=== PATIENT | male | born 1960 | race Caucasian/White ===

== ENCOUNTER 2019-07-24 16:34 | Inpatient (IN) | payer BC, SELFPAY ==
[~2019-07-24 16:34] MED LIST: Iopamidol-370 76% 500 ML 1 ML ONE
[2019-07-24] MEDS ORDERED: Morphine 4 MG/ML VIAL ONE ×4 (17:06→22:29)
[2019-07-24] MEDS ORDERED: Ondansetron PF 4 MG/2 ML Vial ONE (17:18)
[2019-07-24 17:26] LABS: #Eosinphils 0.1 thou/uL (0.0-0.7); #Lymphocytes 0.8 thou/uL (1.20-3.40); #Monocytes 0.7 thou/uL (0.11-0.59); #Neutrophils 9.9 thou/uL (1.40-6.50); %Basophils 0.4 % (0.0-1.0); %Eosinophils 0.5 % (0.0-10.0); %Lymphocytes 7.1 % (21.0-51.0); %Monocytes 6.1 % (0.0-10.0); %Neutrophils 85.9 % (42.0-75.0); Hemoglobin 13.4 g/dL (14.0-18.0); Mean Corpuscular Hemoglobin 27.3 pg (27.0-31.0); Mean Corpuscular Volume 85.2 fL (78.0-98.0); Mean Platelet Volume 6.9 fL (7.4-10.4); Platelet Count 213 thou/uL (130-400); RBC Distribution Width 12.3 % (11.5-14.5); Red Blood Cell (RBC) Count 4.93 mill/uL (4.70-6.10); White Blood Cell (WBC) Count 11.5 thou/uL (4.8-10.8)
--- NOTE | 2019-07-24 17:50 | RAD ---
Chest AP view INDICATION: Chest pain COMPARISON: None FINDINGS: Lungs: The lungs are clear Cardiac silhouette: Mild to moderate cardiomegaly Pulmonary vasculature: Mild pulmonary vascular congestion. Pleural spaces: No pleural effusion or pneumothorax is demonstrated. Upper abdomen: No abnormality seen. Osseous structures: No acute osseous abnormality. Additional findings: There is a dual-lead pacemaker overlying the right chest wall. IMPRESSION: Mild/moderate cardiomegaly with mild pulmonary vascular congestion
[2019-07-24 18:01] LABS: ALT (SGPT) 49 U/L (8-55); AST (SGOT) 50 U/L (5-34); Alkaline Phosphatase 57 U/L (40-110); Anion Gap 11 mmol/L (10-20); BUN (Urea Nitrogen) 17 mg/dL (8.4-25.7); Bilirubin, Total 0.3 mg/dL (0.2-1.2); Calc. Creatinine Clearance 0 mL/min (70-130); Carbon Dioxide 26 mmol/L (22-29); Chloride 107 mmol/L (98-107); Estimated GFR-MDRD 69; Globulin 3.3 g/dL (2.4-3.5); Glucose 160 mg/dL (70-105); Lipase 39 U/L (8-78); Potassium 4.1 mmol/L (3.5-5.1); Protein, Total 7.3 g/dL (6.0-8.3); Sodium 140 mmol/L (136-145)
[2019-07-24 18:43] LABS: Bilirubin Moderate (Negative); Blood, Urine Large (Negative); Leukocyte Negative (Negative); Nitrite Negative (Negative); Protein, Urine (Dipstick) > or equal to 300 mg/dL (Neg-Trace)
[2019-07-24 18:44] LABS: Clarity Turbid (Clear); Glucose, Urine (Dipstick) Negative (Negative)
--- NOTE | 2019-07-24 18:45 | CT ---
CT HEAD WITHOUT IV CONTRAST COMPARISON: None HISTORY: Fell off ladder from a 5 foot height. Patient hit head. TECHNIQUE: Axial CT imaging at 5 mm intervals from vertex through skull base without contrast FINDINGS: A low-density focus is seen in the inferior aspect of the right basal ganglia which may represent a r emote lacunar infarction versus dilated perivascular space. There is no evidence of an acute infarction, hemorrhage, mass effect, or midline shift. The ventricular system is normal in size, shap e, and position. There is thickening of the cervantes of the right sphenoid sinus which could be sequela of chronic sinusi tis. Minimal mucosal thickening is seen in each maxillary antrum. Mastoid air cells are clear. Osseous structures appear intact.No calvarial fracture is seen. IMPRESSION: 1. No acute intracranial abnormality demonstrated. 2. Low-density focus inferior aspect right basal ganglia which may represent remote lacunar infarctio n versus dilated perivascular space.
--- NOTE | 2019-07-24 18:47 | CT ---
CT Cervical Spine WO Con Indication: Fall from ladder with neck injury COMPARISON: None. FINDINGS: Fracture: None. Spinal alignment: No acute malalignment. Craniocervical junction: Within normal limits. Vertebral body heights: Maintained. Cervical spine degenerative change: Mild multilevel cervical spondylosis Lung apices: Mild pleural parenchymal scarring involving both lung apices. IMPRESSION: No acute osseous abnormality.
[2019-07-24 18:49] LABS: RBC/HPF Greater than 50 HPF (0-3)
[2019-07-24 18:53] LABS: Bacteria/HPF None Seen HPF (None Seen); Sperm/HPF 3+ HPF (None Seen); Squamous Epithelial 0-3 HPF (0-3)
--- NOTE | 2019-07-24 19:08 | CT ---
EXAM: CT of the chest with IV contrast CT of the abdomen and pelvis with IV contrast HISTORY: Patient fell 5 feet from a ladder. Injury after fall. Patient on anticoagulation. COMPARISON: None FINDINGS: CT CHEST: Mediastinum: Dual lead right internal jugular vein cardiac pacemaking device is noted in place. The h eart is mildly enlarged. Vessels: There are no findings to suggest an aortic injury. An apparent right subclavian artery is present. Lungs: Dependent atelectasis is present bilaterally. Pleural space: No pneumothorax or pleural effusion is evident. There is a small amount of extrapleura l hemorrhage seen posteriorly on the right. Osseous structures: Nondisplaced fractures are seen involving the posterior right fourth through 12th ribs. Chest wall: Within normal limits. CT ABDOMEN/PELVIS: Liver: Within normal limits. Gallbladder: Within normal limits for CT appearance. Spleen: Within normal limits. Pancreas: Within normal limits. Adrenal glands: Within normal limits. Kidneys: Tiny subcentimeter too small to characterize hypodense lesions seen midportion right kidney. There is minimal but symmetric bilateral perinephric stranding present. Urinary bladder: Decompressed but grossly within normal limits. Vessels: There are no findings to suggest an aortic injury. Pelvis: No focal mass or abnormality. Reproductive organs: Within normal limits for the patient's age. Peritoneum/retroperitoneum: There is minimal stranding seen adjacent to the right psoas muscle with t iny amount of fluid present. This also minimal stranding seen adjacent to the left leticia of the diaphragm with stranding in a paravertebral location in this region as well. Osseous structures: The vertebral body heights of the thoracic and lumbar spine appear to be within n ormal limits. However, there is abnormal widening of the T9-T10 interspace with findings likely related to a mild distraction/hyperextension injury at this level with fracture of a ossified anterio r longitudinal ligament. In addition, there is a subtle nondisplaced fracture extending through the base of the T9 spinous process. There are slightly fractures involving the right-sided transverse processes of L1, L2, and L4 with fracture involving the left L4 transverse process. IMPRESSION: 1. Nondisplaced fractures involving the posterior right fourth through 12th ribs with small amount of adjacent extrapleural hemorrhage. 2. Hyperextension injury with abnormal widening of the T9-T10 interspace and likely fracture through an ossified anterior longitudinal ligament. There is also a subtle nondisplaced fracture involving the base of the T9 spinous process at this level. 3. Right-sided fractures involving the L1, L2, and L4 transverse processes with a fracture involving the left L4 transverse process. 4. Mild stranding seen in a paravertebral location and adjacent to the thoracic aorta at the T9-T10 l evel likely related to the injury at the T9-T10 level. 5. Minimal stranding seen adjacent to the left leticia of the diaphragm just superior to the level of th e celiac artery origin which may represent small amount of venous hemorrhage. A small 1.2 cm nodular density is present in this region which may also be related to the small amount of hemorrhage in this region. No large hematoma is visualized. There is suggestion of slight asymmetric thickening of the right leticia of the diaphragm although this may be within normal limits for the patie nt. 6. Above findings discussed with Dr. Lubin in the emergency department on 07/24/2019 at 1904 hours.
[2019-07-24 20:28] LABS: Lactic Acid 1.6 mmol/L (0.5-2.2)
[2019-07-24] MEDS ORDERED: Ondansetron ODT 4 MG TAB PO PRN (21:41)
[2019-07-24] MEDS ORDERED: Dextrose 50% Abboject 50 ML SYRINGE SLOW IVP PRN (21:41)
[2019-07-24] MEDS ORDERED: HumaLOG 300 UNITS/3 ML VIAL SC PRN (21:41)
[2019-07-24] MEDS ORDERED: Ondansetron PF 4 MG/2 ML Vial IVP PRN (21:41)
[2019-07-24] MEDS ORDERED: Dextrose 5% in Water 1,000 ML IV PRN (21:41)
[2019-07-24] MEDS ORDERED: Rib Fracture Protocol PO SCH (22:00)
[2019-07-24] MEDS: Acetaminophen 500 MG TAB PO SCH (23:37)
[2019-07-24] MEDS: traMADol HCl 50 MG TAB PO SCH (23:37)
[2019-07-24] MEDS: Cyclobenzaprine 10 MG TAB PO PRN (23:38)
--- NOTE | 2019-07-24 23:39 | HP ---
REQUESTING PHYSICIAN: Rajesh Lubin DO CONSULTING PHYSICIAN: Dr. Maria. HISTORY OF PRESENT ILLNESS: Mr. Greene is a 59-year-old male, who presented to the ED after fall from a 7-feet ladder at home. The patient did not lose consciousness, did not hit his head. The patient fell and landed on his back. After a fall, the patient experienced excruciating pain of upper back area. No other injury to be reported. The patient has a history of pacemaker, atrial fibrillation, on Eliquis. REVIEW OF SYSTEMS: Noncontributory except per HPI. CURRENT MEDICATIONS: Metoprolol 30 mg b.i.d. and Eliquis 5 mg b.i.d. ALLERGIES: ANTIHISTAMINE. THE PATIENT EXPERIENCED PROFUSE SWEATING WITH ANTIHISTAMINE. PAST MEDICAL HISTORY: Atrial fibrillation, pacemaker three years ago. PAST SURGICAL HISTORY: None. SOCIAL HISTORY: The patient denies alcohol, denies drug use. He is chewing tobacco. PHYSICAL EXAMINATION: GENERAL: Currently, the patient is lying in bed comfortable, in no acute respiratory distress. Complains of upper back pain. VITAL SIGNS: Temperature 98.8, heart rate 85, respiratory rate 22, O2 saturation 100% on room air, and blood pressure 121/78. HEENT: Atraumatic. No bruising. Nontender to palpation. Pupils 3 mm, equal bilaterally. NECK: Trachea midline. Nontender to palpation. CHEST: No bruising. Upper back gray cloth washer to palpation on the right side. LUNGS: Clear bilaterally. HEART: Regular rate and rhythm. ABDOMEN: No bruising. Nondistended. Nontender to palpation. Bowel sounds active. PELVIS: Stable. EXTREMITIES: Normal range of motion x4. NEUROVASCULAR: Intact x4. NEUROLOGIC: No focal neurology deficits. Imaging : Initial workup shows blood in the urine and urine color is brown. CT cervical spine shows no acute osseous abnormality. CT head, no acute intracranial abnormality. Chest XR show moderate cardiomegaly with pulmonary vascular congestion. CT of chest, abdomen, and pelvis show nondisplaced fracture of posterior right 4 through 12 ribs with small adjacent extrapleural hemorrhage, hyperextension injury with abnormal widening of the T9-T10 interspace. Right side fracture of L1, L2, L4 transverse process fracture, and left L4 transverse process fracture, mild stranding of the paravertebral location. Chemistry show sodium 140, potassium 4.1, creatinine 1.1, glucose 160. Assessment : 1. Status post fall from 7f ladder on Eliquis 2. R posterior of 4th- 12th ribs fracture 3. R transverse fracture of L1, L2, L4 . Left transverse fracture of L4 4. History of pacemaker, afib, DVT 5. gross hematuria on UA PLAN: The patient will be admitted to [place] [id number] for pain control with rib fracture protocol exclude Ibuprofen due to so hemorrhage on abdominal CT scan. Initiate non pharmacological DVT prophylaxis . Initiate gastritis prophylaxis and pulmonary toilet. recheck UA. The patient will be working with Physical Therapy and Occupational Therapy. Anticipate discharge home after pain is controlled. Repeat chest x-ray tomorrow. Job ID: [id number] [facility]
[2019-07-24] MEDS ORDERED: Ibuprofen 800 MG TAB PO SCH (23:59)
[2019-07-25 01:51] VITALS: BMI 34.9
[2019-07-25] MEDS: traMADol HCl 50 MG TAB PO SCH ×3 (05:45→18:21)
[2019-07-25] MEDS: Acetaminophen 500 MG TAB PO SCH ×3 (05:45→18:21)
[2019-07-25 07:47] LABS: #Eosinphils 0.1 thou/uL (0.0-0.7); #Lymphocytes 1.1 thou/uL (1.20-3.40); #Monocytes 0.7 thou/uL (0.11-0.59); #Neutrophils 7.6 thou/uL (1.40-6.50); %Basophils 0.2 % (0.0-1.0); %Eosinophils 0.5 % (0.0-10.0); %Lymphocytes 11.6 % (21.0-51.0); %Monocytes 7.7 % (0.0-10.0); %Neutrophils 79.9 % (42.0-75.0); Hemoglobin 13.5 g/dL (14.0-18.0); Mean Corpuscular Hemoglobin 27.6 pg (27.0-31.0); Mean Corpuscular Volume 86.4 fL (78.0-98.0); Mean Platelet Volume 7.2 fL (7.4-10.4); Platelet Count 176 thou/uL (130-400); RBC Distribution Width 12.3 % (11.5-14.5); Red Blood Cell (RBC) Count 4.87 mill/uL (4.70-6.10); White Blood Cell (WBC) Count 9.5 thou/uL (4.8-10.8)
[2019-07-25 08:08] LABS: Anion Gap 10 mmol/L (10-20); BUN (Urea Nitrogen) 17 mg/dL (8.4-25.7); CK (CPK) 1258 U/L (30-200); Calc. Creatinine Clearance 159 mL/min (70-130); Calcium 8.8 mg/dL (7.8-10.44); Carbon Dioxide 26 mmol/L (22-29); Chloride 106 mmol/L (98-107); Estimated GFR-MDRD Greater than 90; Glucose 113 mg/dL (70-105); Potassium 4.3 mmol/L (3.5-5.1); Sodium 138 mmol/L (136-145)
[2019-07-25] MEDS: Gabapentin 300 MG CAP PO SCH ×3 (08:11→21:54)
[2019-07-25] MEDS: Polyethylene Glycol 3350 17 GM Packet PO SCH (08:11)
[2019-07-25] MEDS: Senokot S 8.6-50 MG TAB PO SCH ×2 (08:11→21:57)
[2019-07-25] MEDS: Cyclobenzaprine 10 MG TAB PO PRN ×2 (08:14→15:58)
[2019-07-25] MEDS: Famotidine 20 MG TAB PO SCH ×2 (09:54→22:00)
[2019-07-25] MEDS ORDERED: Lactated Ringer's 1,000 ML IV SCH (13:00)
[2019-07-25] MEDS: Lactated Ringer's 1,000 ML IV SCH ×2 (13:28→21:55)
--- NOTE | 2019-07-25 21:10 | PRG ---
DATE OF SERVICE: 07/25/2019 SUBJECTIVE: Seen by Dr. Hugo Santana on morning rounds. Mr. Greene is a 59-year-old male, admitted overnight for fall from a ladder. On review, a CT demonstrated mild extravasation concern for venous bleeding. However, his hemoglobin remained stable. Hemodynamically, the patient remained stable. He states his pain is present but improved. The patient does have multiple rib fractures. He is only getting around We have encouraged splinting to improve this. Further review of the CT does show a hyperextension injury concerning for an unstable spine; therefore, Neurosurgery has been consulted, and has seen the patient, he has been fitted with a TLSO brace, and we are evaluating his pacemaker, which found out to be [employer], see if this is MRI compatible. If it is so, we will proceed with MRI. Further noted that his urine also is with some blood concerning for a renal injury. Therefore, the patient has been given 1 L normal lactated Ringer bolus followed by maintenance fluids to promote nutrition. No other changes overnight. Eliquis has been held. The patient has no nausea or vomiting. SUBJECTIVE: VITAL SIGNS: Temperature is 98.3, blood pressure 126/77, heart rate is 68, breathing 18 times per minute, saturating 98% on 2 L of oxygen via nasal cannula. GENERAL: This is a 59-year-old male, sitting up in bed in slight distress secondary to pain. HEENT: Normocephalic and atraumatic. Trachea is midline. No JVD is appreciated. RESPIRATORY: Equal rise and fall. Bilateral breath sounds. Clear to auscultation in upper and lower lobes bilaterally. Does have slight diminished bibasilar, likely secondary to tidal volume secondary to pain. CARDIOVASCULAR: Regular rate and rhythm. He has strong pulses. ABDOMEN: Protuberant, yet soft. States this is chronic. No peritoneal signs. Pelvis is stable. The patient moves all of his extremities well. NEUROLOGIC: Alert and oriented to person, place, time, and event. No gross deficits appreciated. SKIN: [place], warm, and dry. PSYCH: Normal mood and affect. DIAGNOSTIC CRITERIA: White blood cell count is 9.5, platelets are 176. Hemoglobin and hematocrit 13.5 and 42.1 respectively. This is similar to the previous study. Sodium is 138, potassium 4.3, chloride is 106, CO2 is 26, creatinine is 0.84, glucose 113. ASSESSMENT AND PLAN: 1. Fall from ladder with acute traumatic pain. 2. Transverse process fractures. 3. Multiple right-sided rib fractures, 4 through 12. 4. Hyperextension injury with T9-T10 widening. 5. Hematuria. Concern for renal injury. 6. Possible extravasation of venous bleeding with stable hemoglobin. 7. History of atrial fibrillation, deep venous thrombosis, status post pacemaker placement 3 years ago. PLAN: 1. Continue current pain management. 2. Neurosurgery has been consulted, appreciate recommendations. 3. Consult [employer] to confirm this pacemaker is MRI compatible. 4. TLSO brace and spinal precautions. 5. Fluids as noted above. 6. Monitor hemoglobin and electrolytes following day. 7. Check a CK level. 8. Continue all other supportive care. 9. Updated the patient and the patient's at bedside and answered all questions. Job ID: [id number]
[2019-07-26] MEDS: traMADol HCl 50 MG TAB PO SCH ×5 (01:00→23:31)
[2019-07-26] MEDS: Acetaminophen 500 MG TAB PO SCH ×5 (01:00→23:31)
--- NOTE | 2019-07-26 03:56 | CON ---
DATE OF CONSULTATION: 07/25/2019 CHIEF COMPLAINT: Mid thoracic back pain status post fall. HISTORY OF PRESENT ILLNESS: Mr. Greene is a 59-year-old gentleman who presented after falling approximately 7 feet off from a ladder and landing flat on his back yesterday. He endorses mid thoracic back pain without associated leg pain, paresthesias, or weakness. CT of the chest, abdomen, pelvis was completed which revealed concern for T9-T10 three-column injury. PHYSICAL EXAMINATION: GENERAL: The patient is awake, alert, and appropriate. The patient lying comfortably in bed, in no apparent distress. HEAD: Normocephalic and atraumatic. EXTREMITIES: 5/5 strength throughout the upper and lower extremity myotomes bilaterally. Sensation to light touch is intact and equal throughout extremities. Patient wearing TLSO clamshell brace upon my evaluation. Gait was not assessed. IMPRESSION: 1. T9-T10 three column injury status post fall from ladder. 2. Multiple lumbar transverse process fractures. 3. Multiple rib fractures. 4. Hematuria, concerning for renal injury. 5. History of atrial fibrillation and deep venous thrombosis, status post pacemaker placement 3 years ago, on Eliquis. PLAN: This case has been discussed and imaging reviewed with Dr. Hoff. CT of the chest, abdomen, and pelvis shows a widening of the interspace at T9- T10 suspicious for unstable three column injury. Imaging shows characteristics of diffuse idiopathic skeletal hyperostosis (DISH) or ankylosing spondylitis-type picture. Multiple right-sided rib fractures present. Additionally, there are multiple lumbar transverse process fractures present at the right L1, L2 and L4 as well as the left L4 transverse process. An MRI of the thoracic spine without contrast was ordered this morning, however it was not completed given the MRI machine was down as well as the patient had a pacemaker with unknown MRI compatibility. Later today, a open claims representative from [employer] was able to assess the pacemaker and was found to be MRI compatible. Therefore, we will proceed with completion of thoracic MRI as soon as possible. TLSO clamshell brace on at all times. The patient may participate with PT and is cleared from a neurosurgical standpoint to mobilize out of bed as long as he is wearing his TLSO clamshell brace. Eliquis has been held. Our team will re- evaluate the patient tomorrow. Please call sooner for any neurologic changes or other concerns. This was a 50 minute initial consult visit in which greater than 50% of the time was spent in review of records, review of imaging, evaluation, examination of the patient, and formulation of a plan. The remaining time was spent in counseling and coordination of care. Job ID: [id number] [facility]
[2019-07-26 05:32] LABS: #Eosinphils 0.1 thou/uL (0.0-0.7); #Lymphocytes 1.4 thou/uL (1.20-3.40); #Monocytes 0.7 thou/uL (0.11-0.59); #Neutrophils 7.9 thou/uL (1.40-6.50); %Basophils 0.2 % (0.0-1.0); %Eosinophils 0.7 % (0.0-10.0); %Lymphocytes 14.1 % (21.0-51.0); %Monocytes 6.9 % (0.0-10.0); %Neutrophils 78.1 % (42.0-75.0); Hemoglobin 12.1 g/dL (14.0-18.0); Mean Corpuscular HGB CONC 32.6 g/dL (32.0-36.0); Mean Corpuscular Hemoglobin 28.2 pg (27.0-31.0); Mean Corpuscular Volume 86.7 fL (78.0-98.0); Mean Platelet Volume 7.1 fL (7.4-10.4); Platelet Count 152 thou/uL (130-400); RBC Distribution Width 12.4 % (11.5-14.5); Red Blood Cell (RBC) Count 4.28 mill/uL (4.70-6.10); White Blood Cell (WBC) Count 10.2 thou/uL (4.8-10.8)
[2019-07-26 05:50] LABS: Anion Gap 12 mmol/L (10-20); BUN (Urea Nitrogen) 14 mg/dL (8.4-25.7); Calc. Creatinine Clearance 167 mL/min (70-130); Calcium 8.1 mg/dL (7.8-10.44); Carbon Dioxide 24 mmol/L (22-29); Chloride 103 mmol/L (98-107); Estimated GFR-MDRD Greater than 90; Glucose 113 mg/dL (70-105); Magnesium 1.7 mg/dL (1.6-2.6); Phosphorus 3.1 mg/dL (2.3-4.7); Potassium 4.1 mmol/L (3.5-5.1); Sodium 135 mmol/L (136-145)
[2019-07-26] MEDS: Cyclobenzaprine 10 MG TAB PO PRN ×2 (06:03→18:05)
--- NOTE | 2019-07-26 08:49 | MRI ---
EXAM: MRI thoracic spine without contrast HISTORY: Fall 7 feet with mid back pain COMPARISON: CT of the spine 07/24/2019 TECHNIQUE: Multiplanar multisequence MR images were obtained of the thoracic spine without contrast. FINDINGS: This exam is limited secondary to artifact from the patient's brace which was left in place for the e xamination. The vertebral bodies demonstrate normal height and alignment without subluxation. There is widening o f the T9/10 intervertebral disc space with high T2 signal within this disc space. The anterior longitudinal ligament cannot be seen at this level but the posterior longitudinal ligament appears in tact. The other intervertebral discs throughout the thoracic spine demonstrate low T2 signal consistent with disc desiccation. The visualized cord demonstrates normal signal throughout. The prevertebral soft tissues are unremarkable. No paraspinal soft tissue abnormality is seen. T1/2: No significant posterior bulge or protrusion. No posterior facet arthrosis. No central canal stenosis. No neural foraminal stenosis. T2/3: No significant posterior bulge or protrusion. No posterior facet arthrosis. No central canal stenosis. No neural foraminal stenosis. T3/4: No significant posterior bulge or protrusion. No posterior facet arthrosis. No central canal stenosis. No neural foraminal stenosis. T4/5: No significant posterior bulge or protrusion. No posterior facet arthrosis. No central canal stenosis. No neural foraminal stenosis. T5/6: No significant posterior bulge or protrusion. No posterior facet arthrosis. No central canal stenosis. No neural foraminal stenosis. T6/7: No significant posterior bulge or protrusion. No posterior facet arthrosis. No central canal stenosis. No neural foraminal stenosis. T7/8: No significant posterior bulge or protrusion. No posterior facet arthrosis. No central canal stenosis. No neural foraminal stenosis. T8/9: No significant posterior bulge or protrusion. No posterior facet arthrosis. No central canal stenosis. No neural foraminal stenosis. T9/10: No significant posterior bulge or protrusion. No posterior facet arthrosis. No central canal stenosis. No neural foraminal stenosis. T10/11: No significant posterior bulge or protrusion. No posterior facet arthrosis. No central bernard l stenosis. No neural foraminal stenosis. T11/12: No significant posterior bulge or protrusion. No posterior facet arthrosis. No central bernard l stenosis. No neural foraminal stenosis. T12/L1: No significant posterior bulge or protrusion. No posterior facet arthrosis. No central bernard l stenosis. No neural foraminal stenosis. IMPRESSION: Abnormal appearance of the T9/T10 intervertebral disc corresponds to the abnormality on CT and likely represented a fracture through the intervertebral disc with blood products seen within the intervertebral disc. No malalignment of the thoracic spine is seen.
[2019-07-26] MEDS: Senokot S 8.6-50 MG TAB PO SCH ×2 (09:07→21:26)
[2019-07-26] MEDS: Gabapentin 300 MG CAP PO SCH ×3 (09:07→21:26)
[2019-07-26] MEDS: Polyethylene Glycol 3350 17 GM Packet PO SCH (09:13)
[2019-07-26] MEDS ORDERED: Magnesium 2 GM/50 ML 2 GM in Premix Bag 1 BAG IVPB SCH (09:15)
[2019-07-26] MEDS ORDERED: Sodium Phosphate 15 MMOL in Sodium Chloride 0.9% 250 ML 250 ML IVPB SCH (09:15)
--- NOTE | 2019-07-26 09:44 | PRG ---
DATE OF SERVICE: Mr. Greene is involved in a fall as outlined in my colleague's note. He sustained a T9-T10 disk space injury. This was confirmed on CT, and MRI findings in the spine are similar to what one might see with ankylosing spondylitis with multilevel fusion. He has a bony injury posteriorly and soft tissue injury anteriorly. We will closely monitor him. Currently, he is in a TLSO clamshell brace and able to mobilize with significant improvement in his pain with the brace in place, however, low threshold to proceed with surgical stabilization. Job ID: [id number]
[2019-07-26] MEDS: Diltiazem HCl SR 60 mg Capsule PO SCH ×2 (10:04→21:26)
[2019-07-26] MEDS ORDERED: Morphine 2 MG/ML SYRINGE SLOW IVP SCH (10:15)
[2019-07-26] MEDS: Famotidine 20 MG TAB PO SCH (10:28)
[2019-07-26] MEDS: Ibuprofen 600 MG TAB PO SCH ×2 (15:04→21:27)
[2019-07-26] MEDS: Lactated Ringer's 1,000 ML IV SCH (15:05)
--- NOTE | 2019-07-26 15:26 | PRG ---
DATE OF SERVICE: 07/26/2019 SUBJECTIVE: The patient is a 59-year-old male with past medical history of pacemaker and atrial fibrillation, on Eliquis, who was seen on morning rounds this morning. He was lying down in bed with his clamshell brace in place. He had been doing well overnight. Some of his electrolytes were repleted this morning. He had his thoracic spine MRI this morning that demonstrated findings consistent with the abnormality seen on the prior CT, which include a T9-T10 intervertebral disk fracture with blood products seen within the intervertebral disk. There was no malalignment of the spine noted on CT. Dr. Hoff from Neurosurgery consulted on the patient and recommended continued use of the TLSO clamshell brace with a low threshold to proceed with surgical stabilization at this time. The patient has been able to eat and urinate normally and has not yet have a bowel movement. This pain is somewhat improved following the brace. The Trauma Team decided to proceed with a post-acute screen for possible rehab placement for the patient at this time. OBJECTIVE: VITAL SIGNS: Temperature 99.7 degrees Fahrenheit, pulse 73, respiratory rate 16, oxygen saturation 90% on 3 L nasal cannula, blood pressure 113/69. GENERAL: A 59-year-old male, lying back in bed with TLSO clamshell brace in place. HEENT: Normocephalic, atraumatic. Midline trachea. RESPIRATORY: Equal rise and fall. Bilateral breath sounds clear to auscultation. CARDIOVASCULAR: Regular rate and rhythm. ABDOMEN: Soft, nontender to palpation, mildly distended. NEUROLOGIC: A and O x4. No gross deficits appreciated. SKIN: [place], warm, and dry. PSYCHIATRIC: Normal mood and affect. LABORATORY DATA: White blood cell count 10.2, hemoglobin 12.1, hematocrit 37.1, platelet count 152. Sodium 135, potassium 4.1, chloride 103, carbon dioxide 24, BUN 14, creatinine 0.80, GFR greater than 90, phosphorus 3.1, magnesium 1.7. IMAGING STUDIES: Thoracic MRI. Abnormal appearance of the T9-T10 intervertebral disk corresponding to the abnormality on CT and likely represented a fracture through the intervertebral disk with blood products seen within the intervertebral disk. No malalignment of the thoracic spine is seen. ASSESSMENT: 1. Fall from ladder with acute traumatic pain. 2. Transverse process fractures. 3. Multiple right-sided rib fractures, 4 through 12. 4. Hyperextension injury with T9-T10 intervertebral disk abnormality. 5. Hematuria, concern for renal injury. 6. Possible extravasation of venous bleeding with stable hemoglobin. 7. History of atrial fibrillation and deep venous thrombosis, status post pacemaker placement 3 years ago. PLAN: Continue current pain, bowel, and diet regimen at this time. Continue PT and OT. MRI has been completed, see above. Neurosurgery is consulted at this time. The patient is to remain in [facility] clamshell brace with low threshold for surgical intervention. We will continue to provide supportive care and monitor the patient to work with PT and OT. Post-acute screening per Case Management. The patient was seen and evaluated by Dr. Santana on morning rounds and he was agreeable with the plan of care. Job ID: [id number] [facility]
--- NOTE | 2019-07-26 16:24 | RAD ---
RADIOGRAPH CHEST 1 VIEW: DATE: 07/26/2019 TIME: 4:08 PM HISTORY: 59-year-old male follow-up chest trauma COMPARISON: 07/24/2019 FINDINGS: New finding of airspace opacity silhouetting the right hemidiaphragm. This is nonspecific. This could be atelectasis, contusion, aspiration, and or pleural effusion. Apparent cardiomegaly may be due to a combination of magnification and epicardial fat pad. No pulmonary edema or pneumothorax. Transve nous right subclavian permanent pacemaker leads. IMPRESSION: Interval development of opacification at base of right lower lobe.
--- NOTE | 2019-07-26 22:19 | CON ---
DATE OF CONSULTATION: HISTORY OF PRESENT ILLNESS: The patient is a 59-year-old gentleman, who suffered a spinal injury and needs to undergo surgery. The patient has a history of pacemaker placement. He had previous history of syncope and he underwent a pacemaker about 3 years ago. He had it first placed on the left side, then had to be switched to the right. The patient subsequently also has a history of atrial fibrillation. He has been on Cardizem and Eliquis. He states he has had no recent palpitations. The patient was able prior to his fall to exercise without any difficulty. The patient denies having any history of chest discomfort. He denied having any dyspnea on exertion. PAST MEDICAL HISTORY: Significant for; 1. Atrial fibrillation. 2. Pacemaker placement. PAST SURGICAL HISTORY: None. FAMILY HISTORY: Strong family history of heart disease. His brother had a coronary bypass surgery. ALLERGIES: ANTIHISTAMINES. MEDICATION: On admission was; 1. Cardizem 60 b.i.d. 2. Eliquis 5 b.i.d. REVIEW OF SYSTEMS: Ten-point system otherwise unremarkable. PHYSICAL EXAMINATION: GENERAL: Obese gentleman, in no acute distress. VITAL SIGNS: Blood pressure 161/80 and temperature was 100.4. NECK: No jugular distention. LUNGS: Clear to auscultation. HEART: Regular rate and rhythm. Normal S1 and S2. ABDOMEN: He has a brace over his abdomen. EXTREMITIES: Showed no edema. VASCULAR: Radial pulses 2+. LABORATORY DATA: His white blood cell count was 10.2, hemoglobin 12.1, hematocrit 37.1, and platelets are 152. His sodium 135, potassium 4.1, chloride 103, bicarbonate 24, BUN 14, creatinine 0.8, and glucose 113. DIAGNOSTIC STUDIES: His EKG revealed normal sinus rhythm with a right bundle-branch block. IMPRESSION: 1. Status post spinal injury. 2. History of atrial fibrillation. 3. History of pacemaker placement. This gentleman presents after sustaining a fall. He needs to undergo surgery. The patient was able to perform more than 4 METs without any difficulty prior to his injury. The patient should be at acceptable risk for undergoing noncardiac surgery. We will follow this patient with you through his hospitalization Job ID: [id number]
--- NOTE | 2019-07-27 02:57 | PRG ---
DATE OF SERVICE: 07/26/2019 SUBJECTIVE: The patient remains on the surgical floor. He is awake and alert, in no distress, sitting up in the chair in a well-fitting TLSO brace. The patient is able to use his IS, only pulling 1000 mL. The patient reports that his pain is well controlled. The patient voices no complaints or concerns at this time. OBJECTIVE: VITAL SIGNS: Stable, afebrile. GENERAL: Well-appearing, middle-aged male, awake and alert, in no distress. RESPIRATORY: Equal chest rise and fall. No respiratory distress. CARDIAC: Regular rate and regular rhythm. EXTREMITIES: Neurovascularly intact x4. NEUROLOGIC: No focal deficits. IMPRESSION: 1. Fall from ladder with acute traumatic pain. 2. Transverse process fractures. 3. Multiple right-sided rib fractures, 4 through 12. 4. Hyperextension injury with T9-T10 intervertebral disk abnormality. 5. Hematuria, concern for renal injury. 6. Possible extravasation of venous bleeding with stable hemoglobin. 7. History of atrial fibrillation, deep venous thrombosis, and pacemaker placement. PLAN: Continue pain regimen and supportive care. Continue PT and OT. Continue TLSO clamshell brace at all times. We will continue to hold the patient's Eliquis until cleared by Neurosurgery. Plan was discussed with the patient, who agrees. Job ID: [id number]
[2019-07-27] MEDS: Acetaminophen 500 MG TAB PO SCH (05:48)
[2019-07-27] MEDS: Ibuprofen 600 MG TAB PO SCH ×3 (05:48→21:37)
[2019-07-27] MEDS: traMADol HCl 50 MG TAB PO SCH ×2 (05:49→12:35)
[2019-07-27 06:09] LABS: #Eosinphils 0.3 thou/uL (0.0-0.7); #Lymphocytes 1.6 thou/uL (1.20-3.40); #Monocytes 0.7 thou/uL (0.11-0.59); #Neutrophils 6.5 thou/uL (1.40-6.50); %Basophils 0.3 % (0.0-1.0); %Eosinophils 3.6 % (0.0-10.0); %Monocytes 7.9 % (0.0-10.0); %Neutrophils 71.1 % (42.0-75.0); Hemoglobin 11.4 g/dL (14.0-18.0); Mean Corpuscular HGB CONC 31.9 g/dL (32.0-36.0); Mean Corpuscular Hemoglobin 27.6 pg (27.0-31.0); Mean Corpuscular Volume 86.7 fL (78.0-98.0); Mean Platelet Volume 7.2 fL (7.4-10.4); Platelet Count 149 thou/uL (130-400); RBC Distribution Width 12.3 % (11.5-14.5); Red Blood Cell (RBC) Count 4.12 mill/uL (4.70-6.10); White Blood Cell (WBC) Count 9.2 thou/uL (4.8-10.8)
[2019-07-27 06:31] LABS: Anion Gap 12 mmol/L (10-20); BUN (Urea Nitrogen) 15 mg/dL (8.4-25.7); Calc. Creatinine Clearance 161 mL/min (70-130); Calcium 8.3 mg/dL (7.8-10.44); Carbon Dioxide 29 mmol/L (22-29); Chloride 99 mmol/L (98-107); Estimated GFR-MDRD Greater than 90; Glucose 110 mg/dL (70-105); Magnesium 2.1 mg/dL (1.6-2.6); Phosphorus 3.7 mg/dL (2.3-4.7); Potassium 3.6 mmol/L (3.5-5.1); Sodium 136 mmol/L (136-145)
[2019-07-27] MEDS ORDERED: Potassium Chloride 20 MEQ TAB PO SCH (06:45)
--- NOTE | 2019-07-27 07:44 | RAD ---
EXAM: Single view of the chest HISTORY: Rib fractures with chest pain COMPARISON: 07/26/2019 FINDINGS: Single view of the chest shows an enlarged but stable cardiomediastinal silhouette. There is stable elevation the right hemidiaphragm. Atelectasis is seen in the right lung base. The pacemaker is unchanged in position. There is no evidence of consolidation, mass, or pleural effusion . IMPRESSION: Stable exam
[2019-07-27] MEDS ORDERED: Potassium Phosphate 15 MMOL in Sodium Chloride 0.9% 250 ML 250 ML IVPB SCH (08:00)
[2019-07-27] MEDS: Senokot S 8.6-50 MG TAB PO SCH ×2 (09:23→21:37)
[2019-07-27] MEDS: Polyethylene Glycol 3350 17 GM Packet PO SCH (09:23)
[2019-07-27] MEDS: Diltiazem HCl SR 60 mg Capsule PO SCH ×2 (09:24→21:38)
[2019-07-27] MEDS: Apixaban 5 MG TAB PO SCH ×2 (09:25→21:38)
[2019-07-27] MEDS: Gabapentin 300 MG CAP PO SCH ×3 (09:27→21:38)
--- NOTE | 2019-07-27 11:12 | PRG ---
DATE OF SERVICE: 07/27/2019 This is a 25-minute subsequent visit in which 50% time was spent in counseling and extensive review of the imaging and hospital course to date with also formulation of plan. Mr. Greene's pain is under much better control. He has a very well fitting brace. MRI confirmed edema through the disk space in the thoracic region, but still started excellent alignment with no change wearing the brace, and mobilizing with in regard to his alignment. He is neurologically intact and again his pain is under excellent control. I let him know at this point we can continue with bracing. I will arrange for upright AP and lateral thoracic spine x-rays in 2 weeks and he is to wear the brace at all times for the next 3 months. He may do sponge baths in the lateral decubitus position briefly to clean, but otherwise, I want him in the brace at all times. He understands that should he fail bracing and all the things to look out for as I have discussed extensively with him that the treatment would be with a thoracic screw cuba fixation. Job ID: [id number]
[2019-07-27] MEDS ORDERED: HYDROcodone/Acetaminophen 7.5/325 mg Tablet PO PRN (11:36)
[2019-07-27] MEDS: Cyclobenzaprine 10 MG TAB PO PRN (12:38)
--- NOTE | 2019-07-27 15:37 | PRG ---
DATE OF SERVICE: 07/27/2019 SUBJECTIVE: The patient was evaluated today during morning rounds. He was sitting upright in the chair next to his bed, in no acute distress. The patient discussed that at this time he is considering going home versus going to rehab and asked Trauma team for recommendations. At this point in time, it was strongly recommended to the patient that he consider rehab as this would likely provide him with great support over the coming days with regard to strengthening and conditioning. Dr. Winters did consult on the patient yesterday in case if the patient needed surgery and at this point, Dr. iWnters said that he would be acceptable for surgery if needed at this time. That being said, Dr. Hoff did look through all the images and recommended that the patient have non-operative treatment at this time as long as he remained in his TLSO clamshell brace at all times. He recommended bathing with sponge bath in the lateral decubitus position, but otherwise wearing a his clamshell brace at all times and to follow up with him in clinic in two weeks with x-rays in order to evaluate his spine and ribs. Dr. Hoff made the recommendation that if the bracing does fail, the patient would likely need thoracic screw cuba fixation at that time. The patient performed incentive spirometry while we were in the room and could only produce 1000 mL on the incentive spirometry at his maximum. It was reported that he needed more oxygen overnight in order to keep his oxygen saturation greater than 92% and his oxygen was up to 3 L at one point. Incentive spirometry was strongly recommended and increased throughout the night as a chest x-ray done had demonstrated a new right lower lobe opacity that was suggestive of atelectasis. The patient stated understanding of the importance of incentive spirometry at this time. It was felt that he was not able to perform his incentive spirometry adequately due to pain and for that reason, his pain regimen was increased so that he would receive one 7.5 mg of [place] q.6 hours p.r.n. for breakthrough pain. His Tylenol was decreased to 650mg. The patient stated that he was agreeable with the plan of care. OBJECTIVE: VITAL SIGNS: Temperature 98.3 Fahrenheit, pulse 71, respiratory rate 18, 94% on 3 L nasal cannula, blood pressure 137/71. GENERAL: A 59-year-old male, sitting upright in chair, in no acute distress. HEENT: Normocephalic, atraumatic. Midline trachea. RESPIRATORY: Equal rise and fall, no respiratory distress at this time. CARDIOVASCULAR: Regular rate and rhythm. ABDOMEN: Soft, nontender, mildly distended. NEUROLOGIC: Sensation and motor intact throughout. No gross deficits appreciated. PSYCH: A and O x4. LABORATORY DATA: White count 9.2, hemoglobin 11.4, hematocrit 35.8, platelet count 149. Sodium 136, potassium 3.6, chloride 199, carbon dioxide 29, BUN 15, creatinine 0.83, GFR greater than 90, phosphorus 3.7, magnesium 2.1. DIAGNOSTIC IMAGIN. Chest x-ray 07/26/2019 at 1536 hours: Interval development of opacification at base of right lower lobe. 2. Chest x-ray 07/27/2019 at 0600 hours: Single-view chest shows an enlarged, but stable cardiomediastinal silhouette. There is stable elevation of the right hemidiaphragm. Atelectasis is seen in the right lung base. The pacemaker is unchanged in position. There is no evidence of consolidation, mass, or pleural effusion. ASSESSMENT: 1. Fall from ladder with acute traumatic pain. 2. Transverse process fractures. 3. Multiple right-sided rib fractures 4 through 12. 4. Hyperextension injury with T9 through T10 intervertebral disk abnormality. 5. Hematuria, concern for renal injury, improving. 6. Possible extravasation of venous bleeding with stable hemoglobin. 7. History of atrial fibrillation and deep venous thrombosis, status post pacemaker placement three years ago. PLAN: The patient to continue diet and bowel regimen at this time. Pain regimen has been increased with the addition of [place] at this time to hopefully assist with the patient's pain tolerance so that he can perform better with the incentive spirometry and help prevent further atelectasis from forming. The patient will not likely need surgery at this time and will continue to have his TLSO brace in place for the next three months with followup with Dr. Hoff in clinic in two weeks. The patient is agreeable to going to rehab at this time and a rehab screen has been placed. Potassium has been repleted this morning. The patient to continue to work with PT and OT as able. The patient was evaluated by and the case discussed with Dr. Santana during morning rounds and he is agreeable with the plan of care. Job ID: [id number] [facility]
[2019-07-27] MEDS: HYDROcodone/Acetaminophen 10/325 mg Tablet PO PRN (17:03)
[2019-07-27] MEDS: HYDROcodone/Acetaminophen 10/325 mg Tablet PO SCH ×2 (17:05→21:38)
[2019-07-27] MEDS: Lidocaine 5% Patch TD SCH (17:39)
[2019-07-27] MEDS: Acetaminophen 325 MG TAB PO SCH (17:39)
[2019-07-27] MEDS ORDERED: Acetaminophen 325 MG TAB PO SCH (18:00)
[2019-07-28] MEDS: Acetaminophen 325 MG TAB PO SCH ×4 (00:13→19:51)
--- NOTE | 2019-07-28 00:41 | PRG ---
DATE OF SERVICE: 07/27/2019 SUBJECTIVE: The patient was seen evening rounds, awake, alert, sitting up in bed, in no acute distress. The patient remains in a well-fitting TLSO brace. The patient continues to work on his incentive spirometer, but only able to reach 1150 mL. The patient reports that his pain is well controlled. The patient continues to have some light pink urine output. The patient has been instructed to inform staff if pain, notices more bleeding or darker color urine due to being placed back on Eliquis. The patient voices no complaints or concerns. Pain has been better with scheduled [place]. OBJECTIVE: VITAL SIGNS: Stable, afebrile, requiring 2 L nasal cannula. GENERAL: Middle-aged male, awake, alert, in no distress. HEENT: Head is normocephalic and atraumatic, trachea midline. RESPIRATORY: Equal chest rise and fall, no respiratory distress. CARDIOVASCULAR: Regular rate and rhythm. EXTREMITIES: Neurovascularly intact x4. ASSESSMENT: 1. Fall from ladder with acute traumatic pain. 2. Transverse process fractures. 3. Multiple right-sided rib fractures, 4 through 12. 4. Hematuria, concern for renal injury, improving. 5. Possible extravasation of venous bleeding with stable hemoglobin. 6. History of atrial fibrillation, deep vein thrombosis and pacemaker placement. PLAN: Continue supportive care and pain regimen. Continue to use incentive spirometer every hour while awake. Physical and Occupational Therapy. The patient is pending placement to rehab for continued physical and occupational therapy. Job ID: [id number]
[2019-07-28] MEDS: Ibuprofen 600 MG TAB PO SCH ×3 (06:20→20:45)
[2019-07-28] MEDS: HYDROcodone/Acetaminophen 10/325 mg Tablet PO SCH ×3 (06:20→18:43)
[2019-07-28] MEDS: Lidocaine Patch Removal 1 EACH TOP SCH (07:44)
[2019-07-28] MEDS ORDERED: Furosemide 40 MG/4 ML VIAL SLOW IVP SCH (08:45)
[2019-07-28] MEDS: Diltiazem HCl SR 60 mg Capsule PO SCH ×2 (08:54→20:45)
[2019-07-28] MEDS: Senokot S 8.6-50 MG TAB PO SCH ×2 (08:54→20:45)
[2019-07-28] MEDS: Gabapentin 300 MG CAP PO SCH ×3 (08:54→20:46)
[2019-07-28] MEDS: Apixaban 5 MG TAB PO SCH ×2 (08:54→20:46)
[2019-07-28] MEDS: Polyethylene Glycol 3350 17 GM Packet PO SCH (08:54)
[2019-07-28] MEDS: HYDROcodone/Acetaminophen 10/325 mg Tablet PO PRN ×2 (12:42→20:46)
[2019-07-28] MEDS: Cyclobenzaprine 10 MG TAB PO PRN (12:42)
[2019-07-28] MEDS: Lidocaine 5% Patch TD SCH (18:43)
--- NOTE | 2019-07-28 18:46 | PRG ---
DATE OF SERVICE: 07/28/2019 SUBJECTIVE: The patient was seen this afternoon during rounds, who is sitting up in the bed with no signs of acute distress. TLSO is in place and reporting pain much better controlled. Tolerating a diet. OBJECTIVE: VITAL SIGNS: Temperature 98.4, pulse 85, respirations 18, oxygen saturation 94% on room air, blood pressure 145/83. GENERAL: Well-appearing middle-aged male, lying in bed with no signs of acute distress. PULMONARY: Equal chest rise and fall. No signs of acute respiratory distress. CARDIAC: Regular rate and rhythm. GI: Abdomen is soft, nontender, nondistended. EXTREMITIES: 2+ pulses in all extremities. Gross motor and sensations intact. No significant swelling noted. NEUROLOGIC: GCS is 15. LABORATORY FINDINGS: There are no new laboratory findings to discuss. DIAGNOSTIC FINDINGS: There are no new diagnostic findings to report. ASSESSMENT: 1. Status post fall from ladder, on Eliquis. 2. Right posterior ribs 4 through 12 fractures. 3. Fractures of the L and T-spine. 4. Gross hematuria. Suspected to have grade 1 kidney injury. 5. History of atrial fibrillation, pacemaker, deep venous thrombosis, and cardiomegaly. PLAN: Continue current diet and pain regimen. Continue physical and occupational therapy. Continue Eliquis. Continue aggressive pulmonary hygiene. The patient has pending placement in acute rehab. He is ready for discharge at this time. Job ID: [id number]
[2019-07-29] MEDS: HYDROcodone/Acetaminophen 10/325 mg Tablet PO SCH ×5 (00:42→22:57)
[2019-07-29] MEDS: Acetaminophen 325 MG TAB PO SCH ×5 (00:42→23:02)
--- NOTE | 2019-07-29 03:55 | PRG ---
DATE OF SERVICE: 07/28/2019 SUBJECTIVE: The patient remains on the surgical floor, awake, alert, in no distress, sitting up in the chair. The patient reports his pain is controlled and has been able to pull a little more from his IS today. The patient does complain of some right thigh swelling, pain, and numbness that started last night. He denies any injury to that extremity. The patient continues to have a good appetite and voices no other complaints. OBJECTIVE: VITAL SIGNS: Stable, continues to require occasional oxygen at 2 L nasal cannula. High temp 100.2. GENERAL: Well-appearing middle-aged male, awake, alert, in no distress. PULMONARY: Equal chest rise and fall, no respiratory distress. CARDIAC: Regular rate, regular rhythm, no pedal edema. Well-fitting TLSO brace in place. EXTREMITIES: Moves all extremities. Neurovascularly intact x4. Right upper extremity; no obvious bruising, right thigh slightly larger than left. The patient denies any numbness or tingling to other extremities. Sensation is intact in all extremities. NEUROLOGIC: GCS 15. ASSESSMENT: 1. Status post fall from ladder, on Eliquis. 2. Right posterior rib fractures 4 through 12. 3. Fractures of lumbar and T-spine. 4. Gross hematuria, improving. Suspected grade 1 kidney injury. 5. History of atrial fibrillation, pacemaker, deep venous thrombosis from peripherally inserted central catheter line placement and cardiomegaly. PLAN: Continue current diet and pain regimen. Continue physical and occupational therapy. Continue Eliquis. Continue aggressive pulmonary toilet with the use of incentive spirometer every hour while awake x10. The patient is pending placement to inpatient rehab. The patient is ready for discharge at this time. Plan was discussed with the patient who agrees. We will also obtain a right lower extremity ultrasound due to swelling and pain. Job ID: [id number]
[2019-07-29] MEDS: Lidocaine Patch Removal 1 EACH TOP SCH (05:37)
[2019-07-29 06:22] LABS: #Eosinphils 0.3 thou/uL (0.0-0.7); #Lymphocytes 1.5 thou/uL (1.20-3.40); #Monocytes 0.9 thou/uL (0.11-0.59); #Neutrophils 4.4 thou/uL (1.40-6.50); %Basophils 0.4 % (0.0-1.0); %Eosinophils 4.3 % (0.0-10.0); %Monocytes 12.3 % (0.0-10.0); %Neutrophils 62.1 % (42.0-75.0); Hemoglobin 11.2 g/dL (14.0-18.0); Mean Corpuscular HGB CONC 32.8 g/dL (32.0-36.0); Mean Corpuscular Hemoglobin 28.3 pg (27.0-31.0); Mean Corpuscular Volume 86.3 fL (78.0-98.0); Platelet Count 191 thou/uL (130-400); RBC Distribution Width 12.4 % (11.5-14.5); Red Blood Cell (RBC) Count 3.95 mill/uL (4.70-6.10)
[2019-07-29] MEDS: Ibuprofen 600 MG TAB PO SCH ×3 (07:20→22:57)
--- NOTE | 2019-07-29 08:15 | ULT ---
RIGHT LOWER EXTREMITY VENOUS ULTRASOUND: Date: 07/29/2019 HISTORY: Right lower extremity edema. TECHNIQUE: Multiplanar Paul scale and color Doppler images were obtained in a right lower extremity venous ultra sound. Spectral analysis of the Doppler waveforms were performed. FINDINGS: The right common femoral vein, profunda femoral vein, superficial femoral vein, and popliteal vein ar e normal in appearance without visible thrombus. These vessels demonstrate normal compression, flow, and augmentation. The posterior tibial vein and greater saphenous vein are also patent. IMPRESSION: No evidence of deep venous thrombosis. POS: CHIO
[2019-07-29] MEDS: Gabapentin 300 MG CAP PO SCH ×3 (10:05→20:09)
[2019-07-29] MEDS: Apixaban 5 MG TAB PO SCH ×2 (10:05→20:08)
[2019-07-29] MEDS: Senokot S 8.6-50 MG TAB PO SCH ×2 (10:05→20:08)
[2019-07-29] MEDS: Diltiazem HCl SR 60 mg Capsule PO SCH ×2 (10:05→20:08)
[2019-07-29] MEDS: Polyethylene Glycol 3350 17 GM Packet PO SCH (10:09)
--- NOTE | 2019-07-29 13:03 | EKG ---
Test Reason : Blood Pressure : / mmHG Vent. Rate : 087 BPM Atrial Rate : 087 BPM P-R Int : 136 ms QRS Dur : 148 ms QT Int : 390 ms P-R-T Axes : 041 008 016 degrees QTc Int : 469 ms Normal sinus rhythm Right bundle branch block Abnormal ECG Confirmed by JEANMARIE HURTADO DO ([id number]), assistant editor DAVID RAMIREZ ([id number] on 07/29/2019 1:03:12 PM Referred By: Confirmed By:JEANMARIE HURTADO DO
[2019-07-29] MEDS: Lidocaine 5% Patch TD SCH (16:15)
--- NOTE | 2019-07-29 16:26 | PRG ---
DATE OF SERVICE: 07/29/2019 SUBJECTIVE: The patient was seen this morning during rounds. He was sitting up with no signs of acute distress. He reported some right-sided leg swelling for which he received a DVT ultrasound of the right lower extremity that demonstrated no DVT. Reports pain was well controlled. Continues to work on his IS. Serious [employer] was in place and fitting appropriately. OBJECTIVE: VITAL SIGNS: Temperature 99.3, pulse 77, respirations 14, oxygen saturation 94% on room air, and blood pressure 127/77. GENERAL: Well-appearing middle-aged male, sitting up with no signs of acute distress. PULMONARY: Equal chest rise and fall. Clear breath sounds bilaterally. No signs of acute respiratory distress. CARDIAC: Regular rate and rhythm. GI: Abdomen is soft, nontender, nondistended. EXTREMITIES: 2+ pulses in all extremities. Gross motor and sensation are intact. Very mild swelling to the right thigh compared to the left with no signs of injury. No tenderness. NEUROLOGIC: GCS 15. LABORATORY FINDINGS: White count 7.0, hemoglobin 11.2, hematocrit 34.1, and platelets 191. DIAGNOSTIC FINDINGS: DVT ultrasound of the right lower extremity demonstrates no evidence of DVT. ASSESSMENT: 1. Status post fall from ladder about 7 feet, on Eliquis. 2. Right posterior rib fractures, 4 through 12. 3. Right transverse process fractures of L1, L2, and L4. 4. T9 and T11 hyperflexion injury while wedging. 5. Hematuria with presumed grade 1 kidney injury, stable. 6. History of atrial fibrillation, pacemaker, deep venous thrombosis, and cardiomegaly. PLAN: Continue current diet and pain regimen. Continue physical and occupational therapy. Continue aggressive pulmonary hygiene. The patient would like a repeat sodium level tomorrow, so he can stop his free water restriction and we will follow that up. He is pending placement at acute rehab facility. He is ready for discharge at this time and is pending insurance approval. Job ID: [id number]
--- NOTE | 2019-07-30 02:48 | PRG ---
DATE OF SERVICE: 07/29/2019 SUBJECTIVE: The patient remains on the surgical floor, awake, alert, no distress, sitting up in the hospital bed in TLSO brace. The patient reports that his pain is well controlled. The patient continues to use an incentive spirometer. OBJECTIVE: VITAL SIGNS: Stable, afebrile, the patient continues to require oxygen on nasal cannula at 2 L. SpO2 is 94%. GENERAL: Well-appearing, middle-aged gentleman, awake, alert, in no distress. RESPIRATORY: Equal chest rise and fall, respirations are even and nonlabored. PLAN: Continue supportive care and pain regimen. Continue aggressive pulmonary toilet with incentive spirometer every hour while awake. Continue to encourage frequent ambulation. The patient is pending placement to inpatient rehab, but the patient has not been approved. By Wednesday, most likely, the patient will be able to go home. The patient is ready for discharge from the hospital at this time. Job ID: [id number]
[2019-07-30 05:37] LABS: Anion Gap 9 mmol/L (10-20); BUN (Urea Nitrogen) 21 mg/dL (8.4-25.7); Calc. Creatinine Clearance 165 mL/min (70-130); Calcium 8.5 mg/dL (7.8-10.44); Carbon Dioxide 33 mmol/L (22-29); Chloride 101 mmol/L (98-107); Estimated GFR-MDRD Greater than 90; Glucose 106 mg/dL (70-105); Potassium 4.2 mmol/L (3.5-5.1); Sodium 139 mmol/L (136-145)
[2019-07-30] MEDS: HYDROcodone/Acetaminophen 10/325 mg Tablet PO SCH ×4 (05:37→22:56)
[2019-07-30] MEDS: Lidocaine Patch Removal 1 EACH TOP SCH (05:37)
[2019-07-30] MEDS: Ibuprofen 600 MG TAB PO SCH ×3 (07:13→22:57)
[2019-07-30] MEDS: Acetaminophen 325 MG TAB PO SCH ×4 (07:13→22:56)
[2019-07-30] MEDS: Polyethylene Glycol 3350 17 GM Packet PO SCH (10:20)
[2019-07-30] MEDS: Gabapentin 300 MG CAP PO SCH ×3 (10:21→19:54)
[2019-07-30] MEDS: Diltiazem HCl SR 60 mg Capsule PO SCH ×2 (10:21→19:54)
[2019-07-30] MEDS: Senokot S 8.6-50 MG TAB PO SCH ×2 (10:22→19:55)
[2019-07-30] MEDS: Apixaban 5 MG TAB PO SCH ×2 (10:22→19:54)
[2019-07-30] MEDS ORDERED: Furosemide 20 MG TAB PO SCH (12:15)
--- NOTE | 2019-07-30 17:23 | RAD ---
TWO VIEWS RIGHT FEMUR: Date: 07-30-2019 Provided Clinical History: Pain status post injury. FINDINGS: No evidence for fracture or other acute osseous abnormality. If there is persistent clinical concern, conservative management and follow up imaging are advised. IMPRESSION: As above. POS: ROMAN
--- NOTE | 2019-07-30 17:42 | PRG ---
DATE OF SERVICE: 07/30/2019 SUBJECTIVE: The patient is currently on the surgical floor status post fall from ladder in which he sustained multiple right rib fractures, right transverse process fractures of L1, 2, and 4 and a hyperflexion injury of T9 and T11, which is being treated in a full-time wear a TLSO brace. The patient's pain is controlled. He is tolerating a diet. He has walked greater than 300 feet with physical therapy and his bowel function has returned. The patient and his spouse are requesting to be discharged home as opposed to rehab. PHYSICAL EXAMINATION: VITAL SIGNS: Temperature is 98.4, heart rate 72, blood pressure 113/67, respirations 16, oxygen saturation 99% on room air. GENERAL: The patient is resting comfortably in bed. He is awake, alert, and oriented x3. Haw[place] Coma Scale is 15. HEENT: Unremarkable. LUNGS: Clear to auscultation with moderate inspiratory and expiratory effort. Somewhat limited by his brace. HEART: Regular rate and rhythm. ABDOMEN: Nondistended with active bowel sounds. EXTREMITIES: Neurovascularly intact x4. The patient is noted to have 1 to 2+ pitting edema this morning. LABORATORY DATA: Sodium 139, potassium 4.2, chloride 101, CO2 of 33, BUN 21, creatinine 0.81, glucose 106. Radiographs this morning, views of the right femur show no acute abnormalities. ASSESSMENT: 1. Status post fall from ladder, on Eliquis. 2. Right posterior rib fractures 4 through 12. 3. Right transverse process fractures of L1, 2 and 4. 4. T9 and T11 hyperflexion injury with disk edema. 5. History of hematuria with presumed grade 1 kidney injury, resolved. 6. History of atrial fibrillation, pacemaker, DVT, and cardiomegaly. PLAN: Continue current supportive care, therapy, and discuss placement. In light of the patient's increase in peripheral edema, we will give him one dose of Lasix today. We will repeat his labs in the morning. Job ID: [id number]
[2019-07-30] MEDS: Lidocaine 5% Patch TD SCH (17:50)
[2019-07-31] MEDS: Lidocaine Patch Removal 1 EACH TOP SCH (04:21)
[2019-07-31] MEDS: HYDROcodone/Acetaminophen 10/325 mg Tablet PO SCH ×2 (04:25→11:18)
[2019-07-31] MEDS: Ibuprofen 600 MG TAB PO SCH ×2 (05:13→13:57)
[2019-07-31] MEDS: Acetaminophen 325 MG TAB PO SCH ×2 (05:13→11:19)
[2019-07-31 05:34] LABS: Anion Gap 11 mmol/L (10-20); BUN (Urea Nitrogen) 19 mg/dL (8.4-25.7); Calc. Creatinine Clearance 165 mL/min (70-130); Calcium 8.6 mg/dL (7.8-10.44); Carbon Dioxide 29 mmol/L (22-29); Chloride 103 mmol/L (98-107); Estimated GFR-MDRD Greater than 90; Glucose 90 mg/dL (70-105); Magnesium 2.1 mg/dL (1.6-2.6); Potassium 3.9 mmol/L (3.5-5.1); Sodium 139 mmol/L (136-145)
[2019-07-31] MEDS: Diltiazem HCl SR 60 mg Capsule PO SCH (08:43)
[2019-07-31] MEDS: Polyethylene Glycol 3350 17 GM Packet PO SCH (08:43)
[2019-07-31] MEDS: Apixaban 5 MG TAB PO SCH (08:43)
[2019-07-31] MEDS: Gabapentin 300 MG CAP PO SCH (08:43)
[2019-07-31] MEDS: Senokot S 8.6-50 MG TAB PO SCH (08:43)
[2019-07-31 11:38] VITALS: BP 116/67; TEMP 99.1
[2019-07-31] MEDS: Cyclobenzaprine 10 MG TAB PO PRN (13:58)
== END 2019-07-31 14:05 | disposition home or self-care (01) | DRG 699 ==
LOC: ERS 16:34 → SJJU 21:45 → OBSVTOIN 07-25 18:52
PROVIDERS: ADMIT Surgery; ATTEND Surgery
DX: S37.009A Unspecified injury of unspecified kidney, initial encounter (principal); S22.41XA Multiple fractures of ribs, right side, initial encounter for closed fracture; S32.019A Unspecified fracture of first lumbar vertebra, initial encounter for closed fracture; S32.029A Unspecified fracture of second lumbar vertebra, initial encounter for closed fracture; S32.059A Unspecified fracture of fifth lumbar vertebra, initial encounter for closed fracture; J98.11 Atelectasis; I48.91 Unspecified atrial fibrillation; S29.8XXA Other specified injuries of thorax, initial encounter; R31.0 Gross hematuria; M51.84 Other intervertebral disc disorders, thoracic region; I51.7 Cardiomegaly; W11.XXXA Fall on and from ladder, initial encounter; Y92.009 Unspecified place in unspecified non-institutional (private) residence as the place of occurrence of the external cause; Z95.0 Presence of cardiac pacemaker; Z79.01 Long term (current) use of anticoagulants; Z86.718 Personal history of other venous thrombosis and embolism; Z79.899 Other long term (current) drug therapy; Z91.048 Other nonmedicinal substance allergy status
CPT/HCPCS: 36415; 70450; 71045; 71260; 72125; 72146; 74177; 80048; 80053; 81003; 81015; 82550; 83605; 83690; 83735; 84100; 85025; 86850; 86900; 86901; 93005; 94640; 96374; 96375; 96376; G0378; J1940; J2270; J2405; J3475; J7050; J7620; L0639; Q9967

== ENCOUNTER 2019-08-08 13:06 | Outpatient (CLI) | payer BC ==
--- NOTE | 2019-08-08 14:53 | RAD ---
THORACIC SPINE 4 VIEWS: HISTORY: Fall with injury to ribs and back. COMPARISON: Correlation is made to MRI thoracic spine 07/21/2019. That exam revealed abnormality at the intervert ebral disk at T9-T10. Review of that exam also shows mild anterior wedging and edema in the T2 verte brae. On today's exam, the T2 vertebra is not well delineated in the lateral view due to overlying artifact at the shoulder. I cannot adequately assess vertebral body height at T2. The other thoracic vertebrae appear to maintain normal height and alignment. Degenerative changes ar e noted. The disk spaces are normally maintained. No significant abnormality is seen at the T9-T10 disk space on today's plain film. Degenerative osteophytes are seen. IMPRESSION: No acute finding. Prior MRI thoracic spine suggested edema and mild wedging at T2. T2 is not adequa tely assessed on today's exam due to artifact from the shoulders. MRI or CT could be performed to fu rther evaluate if indicated. POS: RANI
== END 2019-08-08 13:07 | disposition home or self-care (01) ==
LOC: SCSRAD 13:06
PROVIDERS: ATTEND Surgery
DX: S29.9XXA Unspecified injury of thorax, initial encounter (principal)
CPT/HCPCS: 72070

== ENCOUNTER 2019-09-08 09:20 | Outpatient (CLI) | payer BC ==
--- NOTE | 2019-09-08 10:40 | RAD ---
Exam: 3 views thoracic spine HISTORY: Patient fell in July. Evaluate status of fracture COMPARISON: 08/08/2019 FINDINGS: AP, lateral and swimmer's view of the thoracic findings redemonstrated 12 thoracic type eusebio tebra. Stable vertebral body heights. Table mild loss of disc space height with osteophyte. No T2 fracture is grossly unchanged when taking variable technique into consideration. Evaluation is limite d on the swimmer's and lateral view. Widening of the T9-T10 disc space is once again demonstrated but is better evaluated on previous MRI IMPRESSION: Stable posttraumatic changes
== END 2019-09-08 09:21 | disposition home or self-care (01) ==
LOC: SCSRAD 09:20
PROVIDERS: ATTEND Physician Assistant
DX: S22.009A Unspecified fracture of unspecified thoracic vertebra, initial encounter for closed fracture (principal); M54.6 Pain in thoracic spine; Z98.890 Other specified postprocedural states
CPT/HCPCS: 72072

== ENCOUNTER 2021-05-09 08:56 | Day surgery (SDC) | payer BC ==
[2021-05-06 15:58] VITALS: BMI 39.0
== END 2021-05-09 12:29 | disposition home or self-care (01) ==
LOC: SDC 08:56
PROVIDERS: ATTEND Internal Medicine Gastroenterology
PROC: 0DJD8ZZ Inspection of Lower Intestinal Tract, Via Natural or Artificial Opening Endoscopic (ICD-10-PCS; principal; 2021-05-09)
DX: Z12.11 Encounter for screening for malignant neoplasm of colon (principal); K64.9 Unspecified hemorrhoids; I48.91 Unspecified atrial fibrillation; Z80.0 Family history of malignant neoplasm of digestive organs; Z79.01 Long term (current) use of anticoagulants; Z88.8 Allergy status to other drugs, medicaments and biological substances; Z95.0 Presence of cardiac pacemaker